=== PATIENT | male | born 1950 | race Caucasian/White ===

== ENCOUNTER 2022-12-02 08:31 | Day surgery (SDC) | payer MEDICARE ==
[2022-12-02] VITALS (11 sets, daily range): BP systolic 151–187; BP diastolic 71–119; PULSE 57–76; RESP 15–18; TEMP 97.9; O2SAT 93–98
[~2022-12-02] VITALS: Ht 175.3 cm; Wt 88.9 kg
[2022-12-02] MEDS ORDERED: normal saline 1000ml 1,000 ML IV PRN (08:55)
[2022-12-02] MEDS ORDERED: TRAM50TA2 PO (09:02)
[2022-12-02] MEDS ORDERED: IBUP-1984 PO (09:02)
[2022-12-02] MEDS ORDERED: LISI20TA28 PO (09:02)
[2022-12-02] MEDS ORDERED: CBD Gummies (09:07)
[2022-12-02 09:15] LABS: BASOPHILS % (AUTO) 0.4 % (0-1); EOSINOPHILS # (AUTO) 0.2 X10'3 (0-0.9); EOSINOPHILS % (AUTO) 1.4 % (0-6); HEMATOCRIT 46.9 % (42.0-52.0); HEMOGLOBIN 15.8 g/dl (14.0-17.9); LYMPHOCYTES # (AUTO) 1.5 X10'3 (1.1-4.8); LYMPHOCYTES % (AUTO) 13.1 % (21-51); MEAN CORPUSCULAR HGB CONC 33.7 g/dL (33.0-36.5); MEAN PLATELET VOLUME 8.7 FL (7.4-10.4); MONOCYTES # (AUTO) 0.8 X10'3 (0-0.9); MONOCYTES % (AUTO) 6.7 % (2-12); NEUTROPHILS # (AUTO) 8.7 X10'3 (1.8-7.7); NEUTROPHILS % (AUTO) 78.4 % (42-75); PLATELET COUNT 377 X10'3 (140-440); RED BLOOD COUNT 5.46 X10'6 (4.70-6.10); RED CELL DISTRIBUTION WIDTH 14.3 % (11.5-14.5); WHITE BLOOD COUNT 11.2 X10'3 (4.5-11.0)
[2022-12-02 09:24] LABS: INR 1.1 INR; PROTHROMBIN TIME 11.4 SECONDS (9.0-12.0)
[2022-12-02] MEDS ORDERED: fentaNYL/PF 50MCG/1 ML 2ML syringe ONE (09:27)
[2022-12-02] MEDS ORDERED: midazolam 1 mg/ML 2ml injection ONE (09:27)
[2022-12-02] MEDS ORDERED: lisinopril 10 MG tablet PO STA (10:36)
== END 2022-12-02 11:35 | disposition home or self-care (01) ==
LOC: SSTAY O 08:31 → EDBD 10:30 → SSTAY O 11:35
PROVIDERS: ATTEND Radiology Vascular & Interventional Radiology
DX: M89.8X8 Other specified disorders of bone, other site (principal); C79.51 Secondary malignant neoplasm of bone; C61 Malignant neoplasm of prostate; E11.9 Type 2 diabetes mellitus without complications; I10 Essential (primary) hypertension; Z79.899 Other long term (current) drug therapy; Z87.891 Personal history of nicotine dependence; Z86.19 Personal history of other infectious and parasitic diseases; Z79.01 Long term (current) use of anticoagulants
CPT/HCPCS: 20225; 36415; 77012; 85025; 85610; 99152; 99153; J2250; J3010; J7030; 88307; 88311; 88341; 88342